=== PATIENT | female | born 1980 | race Caucasian/White ===

== ENCOUNTER 2016-05-06 01:02 | Emergency (ER) | payer OTHER ==
[2016-05-06 01:09] VITALS: O2SAT 96
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
[2016-05-06] MEDS ORDERED: IBUPROFEN 200 MG TAB PO ONE (01:15)
[2016-05-06 02:14] VITALS: BP 91/60; PULSE 64; RESP 18; TEMP 98.2
--- NOTE | 2016-05-06 08:31 | DX ---
Left Shoulder, Three Views May 06, 2016 0119 hours Clinical Indications: Trauma. Findings: The humeral head is normally located in the glenoid fossa. No fracture or dislocation. N o evidence of neoplasm, necrosis, or arthritis. No calcifications of soft tissues. Impression: Normal.
== END 2016-05-06 02:13 | disposition home or self-care (01) ==
DX: S40.022A Contusion of left upper arm, initial encounter (principal); F17.200 Nicotine dependence, unspecified, uncomplicated; W51.XXXA Accidental striking against or bumped into by another person, initial encounter; Y92.89 Other specified places as the place of occurrence of the external cause

== ENCOUNTER → 2016-07-17 | Outpatient (CLI) | payer OTHER | LOC: BMCIMAGING 16:04 | PROVIDERS: ATTEND Emergency Medicine | DX: M20.12 Hallux valgus (acquired), left foot (principal) ==